=== PATIENT | female | born 1985 | race Caucasian/White ===

== ENCOUNTER → 2016-05-19 | Outpatient (CLI) | payer OTHER | END | disposition home or self-care (01) | LOC: C.LAB1850 07:07 | PROVIDERS: ATTEND Obstetrics & Gynecology | DX: O28.1 Abnormal biochemical finding on antenatal screening of mother (principal) ==

== ENCOUNTER → 2016-07-12 | Outpatient (CLI) | payer OTHER ==
[2016-07-12 09:51] LABS: HEMATOCRIT 36.2 % (37-47)
[2016-07-12 10:09] LABS: URINE APPEARANCE CLEAR (CLEAR); URINE BILIRUBIN NEG (NEG); URINE COLOR YELLOW; URINE EPITHELIAL CELL AUTO >30 /lpf (0-5); URINE NITRITE NEG (NEG); URINE SPECIFIC GRAVITY 1.013 (1.000-1.030); UROBILINOGEN NEG (NEG)
[2016-07-12 10:14] LABS: MANUAL MICROSCOPIC REQUIRED? NO; REVIEW REQ? NO
== END ==
LOC: C.LAB1850 07:03
PROVIDERS: ATTEND Obstetrics & Gynecology
DX: Z34.03 Encounter for supervision of normal first pregnancy, third trimester (principal)

== ENCOUNTER → 2016-09-17 | Outpatient (CLI) | payer OTHER | END | disposition home or self-care (01) | LOC: C.LABSPEC 13:28 | PROVIDERS: ATTEND Obstetrics & Gynecology | DX: O24.410 Gestational diabetes mellitus in pregnancy, diet controlled (principal); Z3A.00 Weeks of gestation of pregnancy not specified ==

== ENCOUNTER 2016-10-08 09:05 | Inpatient (IN) | payer OTHER ==
[~2016-10-08] VITALS: Ht 162.6 cm; Wt 68.5 kg
[2016-10-08 10:23] VITALS: Ht 162.6 cm; Wt 68.5 kg
[2016-10-08 11:22] LABS: BASO % 0.4 %; BASO ABS # 0.03 K/uL (0-0.2); COMPLETE YES; EOS % 0.9 %; HEMATOCRIT 33.4 % (37-47); IG% 0.4 %; LYMPH % 24.4 %; LYMPH ABS # 1.83 K/uL (1.2-3.4); MEAN CELL VOLUME 81.7 fL (80-100); MEAN CORPUSCULAR HEMOGLOBIN 27.4 pg (25-34); MEAN CORPUSCULAR HGB CONC 33.5 g/dl (32-36); MONO % 11.9 %; PLATELET COUNT 213 K/uL (130-400); RED BLOOD COUNT 4.09 M/uL (4.2-5.4); WHITE BLOOD COUNT 7.49 K/uL (4.8-10.8)
[2016-10-08 11:34] LABS: BUN/CREATININE RATIO 18.3 (10-20); CALCIUM 8.4 mg/dl (8.5-10.1); CREATININE 0.71 mg/dl (0.60-1.20); POTASSIUM 3.4 mmol/L (3.5-5.1)
[2016-10-08 11:36] LABS: ALB/GLOB RATIO 0.6 (0.9-2)
[2016-10-08] MEDS ORDERED: LACTATED RINGER'S 1000ML 1,000 ML IV PRN (12:11)
[2016-10-08] MEDS ORDERED: LACTATED RINGER'S 1000ML 500 ML IV PRN ×2 (12:12→21:20)
[2016-10-08] MEDS ORDERED: OXYTOCIN 30 UNITS/500ML NSS IV PRN (12:15)
[2016-10-08] MEDS: LACTATED RINGER'S 1000ML 1,000 ML IV SCH ×2 (12:55→19:50)
[2016-10-08] MEDS ORDERED: BUPIVACAINE 0.25% 30 ML VIAL ONE (19:54)
[2016-10-08] MEDS ORDERED: EpHEDrine SULFATE INJ 50 MG/ML AMP ONE (19:54)
[2016-10-08] MEDS ORDERED: FENTANYL CITRATE INJ 50 MCG/1 ML 2 ML VIAL ONE (19:55)
[2016-10-08] MEDS ORDERED: FENTANYL 2MCG/ML ROPIV 1.25MG/ML 100ML BAG EPI ONE (19:55)
[2016-10-08] MEDS ORDERED: NALOXONE HCL INJ 1 MG in SODIUM CHLORIDE 0.9% 1000ML 1,000 ML IV PRN (21:20)
[2016-10-08] MEDS ORDERED: NALOXONE HCL INJ 0.4 MG/1 ML VIAL/CARP IV PRN (21:30)
[2016-10-08] MEDS ORDERED: DiphenhydrAMINE HCL 50 MG/ML VIAL IV PRN (21:30)
[2016-10-08] MEDS ORDERED: ONDANSETRON INJ 2 MG/ML 2 ML VIAL IV PRN (21:30)
[2016-10-08] MEDS ORDERED: NALBUPHINE HCL INJ 10 MG/ML AMP IV PRN (21:30)
[2016-10-08] MEDS ORDERED: EpHEDrine SULFATE INJ 50 MG/ML AMP IV PRN (21:30)
[2016-10-08] MEDS: FENTANYL 2MCG/ML ROPIV 1.25MG/ML 100ML BAG EPI PRN (22:54)
[2016-10-09] MEDS: FENTANYL 2MCG/ML ROPIV 1.25MG/ML 100ML BAG EPI PRN (04:01)
[2016-10-09] MEDS ORDERED: BENZOCAINE 20% AER SPR 82.5 GM CAN EXT PRN (06:00)
[2016-10-09] MEDS ORDERED: SUPERCREAM 0.870 % 15GM JAR EXT PRN (06:00)
[2016-10-09] MEDS ORDERED: OXYTOCIN 30 UNITS/500ML NSS IV PRN (06:00)
[2016-10-09] MEDS ORDERED: DIPHTHERIA/TETANUS/PERTUSSIS 0.5 ML SYR/VIAL IM. ONE (06:00)
[2016-10-09] MEDS ORDERED: ACETAMINOPHEN/CODEINE 300/30MG TAB PO PRN ×2 (06:00)
[2016-10-09] MEDS ORDERED: LANOLIN OINT EXT PRN ×2 (06:00)
[2016-10-09] MEDS ORDERED: HYDROCORTISONE ACETATE 25 MG SUPP PR PRN (06:00)
[2016-10-09] MEDS ORDERED: OXYCODONE/ACETAMINOPHEN 5-325 TAB PO PRN (06:00)
[2016-10-09] MEDS: ACETAMINOPHEN 325 MG TAB PO PRN ×3 (06:33→21:14)
[2016-10-09] MEDS: IBUPROFEN 600 MG TAB PO PRN ×4 (08:07→21:13)
[2016-10-09] MEDS: DOCUSATE SODIUM 100 MG CAP PO SCH ×2 (08:09→19:33)
[2016-10-09] MEDS: PRENATAL VITAMIN TAB PO SCH (08:09)
--- NOTE | 2016-10-09 08:16 | Anesthesia Procedure Note ---
Anesthesia Epidural Removal Nt Date & Time Oct 09, 2016 at 08:15 Vital Signs Pain Intensity: 0.0 Notes Mental Status: alert / awake / arousable, participated in evaluation Nausea / Vomiting: adequately controlled Pain: adequately controlled Airway Patency, RR, SpO2: stable & adequate BP & HR: stable & adequate Hydration State: stable & adequate Neuraxial Anesthesia: was administered Anesthetic Complications: no major complications apparent, pt satisfied with anesthetic care Epidural: removed without complications, with tip intact
--- NOTE | 2016-10-09 08:44 | DELIVERY SUMMARY ---
DATE OF OPERATION: 10/09/2016 DATE OF DELIVERY: 10/09/2016. PREOPERATIVE DIAGNOSES: 1. Intrauterine at 39-1/7 weeks. 2. Gestational hypertension. POSTOPERATIVE DIAGNOSIS: Same. PROCEDURES: 1. Pitocin augmentation. 2. Epidural anesthesia. 3. Amniotomy for clear fluid. 4. Intrauterine pressure catheter placed. 5. Normal spontaneous vaginal delivery. 6. Second degree perineal laceration with repair. SURGEON: Dr. Jalloh. ANESTHESIA: Epidural. ESTIMATED BLOOD LOSS: 350 mL. PROCEDURE: Dolores presented to labor and delivery with elevated blood pressures fulfilling the diagnostic criteria for gestational hypertension. After discussion and given that she was 39 weeks decision made for induction. Attempt to place a Pepper bulb failed as originally I thought she was like fingertip to 1 but she was actually 3+ and 50% so she underwent Pitocin augmentation. She made essentially no progress for quite some time so an intrauterine pressure catheter was placed after amniotomy for clear fluid. She then progressed spontaneously from 5 to complete over approximately 2 hours and pushed for approximately half an hour to deliver a viable female in WILFRID presentation. Nose and mouth were bulb suctioned. There was no nuchal cord. The rest of the was then delivered without difficulty. The nose and mouth were again bulb suctioned and the was placed on the maternal abdomen for drying and attention. The cord was clamped and cut at 1 minute of life. Cord blood and segment were obtained. The placenta was delivered spontaneously intact with a 3-vessel cord. Cervix, sulci and rectum were examined and found to be intact. Second degree perineal laceration was repaired in the normal standard fashion. Hemostasis was obtained with dilute Pitocin and fundal massage. Apgars were 8 and 9. Of note, maternal temp prior to pushing was 99.9 and there was tachycardia in the 170s during pushing. I attest to the content of the Intraoperative Record and any orders documented therein. Any exception s are noted below.
[2016-10-09 09:30] VITALS: BP 109/73; PULSE 102; TEMP 36.4; O2SAT 96
[2016-10-09 14:00] VITALS: BP 113/74; PULSE 83; TEMP 36.3; O2SAT 98
[2016-10-09 15:30] VITALS: BP 95/59; PULSE 75; TEMP 36.7
[2016-10-09 19:30] VITALS: BP 107/69; PULSE 86; TEMP 36.6; O2SAT 97
[2016-10-09 23:45] VITALS: BP 105/76; PULSE 70; TEMP 36.6; O2SAT 97
[2016-10-10] MEDS: IBUPROFEN 600 MG TAB PO PRN ×3 (02:31→11:34)
[2016-10-10 03:50] VITALS: BP 106/71; PULSE 80; TEMP 36.5; O2SAT 98
[2016-10-10] MEDS: ACETAMINOPHEN 325 MG TAB PO PRN (03:55)
[2016-10-10 06:21] LABS: HEMATOCRIT 31.3 % (37-47)
--- NOTE | 2016-10-10 07:08 | Progress Note ---
Subjective Oct 10, 2016. Subjective conversation w/ patient, physical exam Ambulation: ambulating normally, limited ambulation Passing Gas: Yes Diet Tolerance: Regular Diet Lochia: Small Feeding Type: Breast Feeding Review of Systems Constitutional: No fever, No chills, No sweats, No weight loss, No weakness, No fatigue, No problem reported Breast: No see HPI, No breast lump, No change in shape, No nipple discharge, No breast pain, No problem reported Abdomen: No pain, No nausea, No vomiting, No diarrhea, No constipation, No GI bleeding, No problem reported Female : No see HPI, No dysuria, No urinary frequency, No hematuria, No incontinence, No abnormal vaginal bleeding, No vaginal discharge, No problem reported Objective Vital Signs Date Time Temp Pulse Resp B/P (MAP) Pulse Ox O2 Delivery O2 Flow Rate FiO2 10/10/16 03:50 36.5 80 16 106/71 (83) 98 Room Air 10/09/16 23:45 97 Room Air 10/09/16 23:45 36.6 70 18 105/76 (86) 97 Room Air 10/09/16 19:30 36.6 86 18 107/69 (82) 97 Room Air 10/09/16 16:00 Room Air 10/09/16 15:30 36.7 75 18 95/59 (71) Room Air 10/09/16 14:00 36.3 83 18 113/74 (87) 98 Room Air 10/09/16 09:30 36.4 102 18 109/73 (85) 96 Room Air Physical Exam General Appearance: WELL-APPEARING, NO APPARENT DISTRESS Abdomen: non tender, soft Fundus: Firm, Non-Tender, Relation to Umbilicus (1 below U) Extremities: no calf tenderness Laboratory Results Last 24 Hours Test 10/10/16 05:54 Hemoglobin 10.2 g/dL Hematocrit 31.3 % Assessment and Plan Day#: 1 Continue Routine Care: stable course BP has normalized discharge to home follow up in 6 weeks.
[2016-10-10] MEDS: PRENATAL VITAMIN TAB PO SCH (07:36)
[2016-10-10] MEDS: DOCUSATE SODIUM 100 MG CAP PO SCH (07:36)
--- NOTE | 2016-10-10 08:03 | Discharge Instructions ---
Discharge Instructions Date of Service Oct 10, 2016. Admission Reason for Admission: [facility] Discharge Discharge Diagnosis / Problem: recovery from delivery Discharge Goals Goal(s): Routine recovery after delivery Medications Continue Dispensed Medications: supercream, dermaplast, tucks, lansinoh Activity Recommendations Activity Limitations: per Instructions/Follow-up section . Instructions / Follow-Up Instructions / Follow-Up ACTIVITY RECOMMENDATIONS: * Gradual return to full activity over the next 2-3 weeks. * No lifting - nothing heavier than baby over the next 2-3 weeks. * Do not engage in vigorous exercise, sexual activity or sports until cleared by your physician. * Do not drive or operate any motorized equipment until cleared by your physician. * You may shower/bathe daily. MEDICATIONS: For discomfort or pain, you may use Acetaminophen (Tylenol), Ibuprofen (Advil), or Naproxen (Aleve) following the package directions. For constipation you may use Colace following the package directions. BREAST CARE: If you are not breast feeding: * Wear a supportive bra 24 hours a day for one to two weeks. * Avoid stimulating your breasts and nipples as much as possible during the first few weeks after delivery. * When taking a shower, have the warm water hit your back, not breasts. * When your breasts feel full, apply ice packs. Usually three to four times a day helps ease the discomfort. * Take a mild pain medication (Tylenol / Motrin) when you are uncomfortable. If breast feeding: * Use breast milk to lubricate nipples. Lansinoh cream may be used for sore nipples. You do not need to remove cream prior to breast feeding. If using a different brand of cream, check the label for directions regarding removal of cream prior to nursing. * Wear a supportive bra. * If having problems with breasts or breast feeding, call a data integrity consultant or your health care provider. EPISIOTOMY CARE: After delivery, if you have an episiotomy (stitches), the following steps will ease discomfort and aid healing. * For the first 24 hours after delivery, place ice packs next to your episiotomy to help reduce swelling. * After the first 24 hour-period, sitz baths, either portable or in the tub, are suggested. A shower with a shower arm sprayed over the episiotomy may be comforting. * Mayra care should be done after each voiding and bowel movement. Squirt warm water from a plastic bottle over the perineum (region of the body between the anus and urinary opening) and pat dry. * Use Dermoplast to ease discomfort. Shake container. [place] directly over the episiotomy. Place a Tucks on a clean sanitary pad next to your episiotomy. SPECIAL CARE INSTRUCTIONS: When you are discharged from the hospital, it is important for you to follow the instructions listed below: * During the first week at home, you should be able to care for yourself and your baby. In addition, the usual light household activities are encouraged. * Limit your activities to the way you feel. Do not try to clean the house or move furniture. Be sensible. * If you actively engage in sports and have done so up until the time of your delivery, you may resume these activities as soon as you feel able. This may take up to one month or even longer. Use good judgment. * Continue to take your vitamins for at least six weeks after the of your baby. * Your diet need not be limited unless you were on a special diet before your delivery. Breast-feeding mothers need around 2500 calories per day and at least 64-80 ounces of fluid per day (8 to 10 glasses). * You should eat foods from the four major food groups. Crash diets or fad diets are to be avoided. Eating lean meats, fresh fruits and vegetables, low-fat dairy products, high fiber foods and a regular exercise program, will help you get back to your pre- weight without putting your health at risk. * Constipation is sometimes a problem after delivery. Take a mild laxative as needed. If breast feeding, Milk of Magnesia is acceptable to use. You may use a suppository or Fleets enema if no episiotomy. * A daily shower or tub bath is suggested. Be sure to thoroughly and gently dry the perineum. * A bloody vaginal discharge will usually continue until around four weeks post . A small amount of bleeding may continue for as long as six weeks. Vaginal discharge changes from the bright red bleeding after delivery to pink then brownish and finally yellowish-pink before becoming white and disappearing. * Bleeding may increase with activity. Your first period may come in 4-8 weeks. If you are breast feeding, your period may be delayed even longer. * [place] (sex) can begin whenever both you and your partner feel comfortable and do not have any form of genital infection. It is recommended that you wait at least six weeks for internal and external healing to occur. If you have questions, please talk to your health care practitioner. A condom should be used to prevent infection and . * Foreplay, gentle intercourse and lubrication is very important the first several times to prevent pain. A water-based lubricant such as K-Y jelly or Astroglide may be used. * If you have RH negative blood and your baby is RH positive, you will receive RHOGAM by injection prior to discharge. The nurse will give you a card to keep with you that has the date and place that you received RHOGAM after delivery. * During your care, you had a Rubella screen done to check for the presence of rubella antibodies in your blood. If your test was negative, you will receive a Rubella vaccine prior to discharge. This vaccine may cause a fever, soreness at the injection site and flu-like symptoms. If these symptoms persist, notify your health care practitioner. is not advised for one month after a Rubella vaccine. * Verbalizes understanding of car seat law as reviewed with patient nursing. * Car Seat hand-out given and reviewed with patient by nursing. * Shaken baby information reviewed with patient by nursing. Call you doctor if: * Heavy bleeding (saturating several pads an hour) or passing clots the size of your fist. * A fever >101 degrees F (38.3 degrees C) on two occasions four hours apart and /or chills. * Unusual pain in the pelvic or vaginal areas. * "Baby Blues" lasting longer than two weeks. If you have any questions or concerns, call your health care practitioner at . FOLLOW UP VISIT: * Please call the office at to schedule a 6 week examination. It is important you keep this appointment. It is important for you to make arrangements for either yearly or twice yearly check-ups thereafter. Current Hospital Diet Patient's current hospital diet: Regular OB Diet Discharge Diet Recommended Diet: Regular OB Diet Pending Studies Studies pending at discharge: no Medical Emergencies . Who to Call and When: Medical Emergencies: If at any time you feel your situation is an emergency, please call 911 immediately. . Non-Emergent Contact Non-Emergency issues call your: Camp Assistant . . "Provider Documentation" section prepared by Nori Jimenez. . VTE Core Measure Inpt VTE Proph given/why not?: Treatment not indicated
[2016-10-10 08:05] VITALS: BP 115/78; PULSE 76; TEMP 36.9; O2SAT 97; O2SAT 98
[2016-10-10 13:57] VITALS: BP_DIAS 78; PULSE 76; TEMP 36.9
== END 2016-10-10 13:50 | disposition home or self-care (01) | DRG 775 ==
LOC: C.LD 09:05 → C.OPB 09:05 → C.LD 12:12 → C.OBG 10-09 10:09
PROVIDERS: ADMIT Obstetrics & Gynecology; ATTEND Obstetrics & Gynecology
PROC: 0KQM0ZZ Repair Perineum Muscle, Open Approach (ICD-10-PCS; principal; 2016-10-09)
PROC: 10E0XZZ Delivery of Products of Conception, External Approach (ICD-10-PCS; principal; 2016-10-09)
PROC: 10903ZC Drainage of Amniotic Fluid, Therapeutic from Products of Conception, Percutaneous Approach (ICD-10-PCS; principal; 2016-10-09)
PROC: 3E033VJ Introduction of Other Hormone into Peripheral Vein, Percutaneous Approach (ICD-10-PCS; principal; 2016-10-09)
DX: O13.4 Gestational [pregnancy-induced] hypertension without significant proteinuria, complicating childbirth (principal); O70.1 Second degree perineal laceration during delivery; O76 Abnormality in fetal heart rate and rhythm complicating labor and delivery; O24.429 Gestational diabetes mellitus in childbirth, unspecified control; Z37.0 Single live birth; Z3A.39 39 weeks gestation of pregnancy

== ENCOUNTER → 2017-04-21 | Outpatient (CLI) | payer OTHER | END | disposition home or self-care (01) | LOC: C.LAB1850 07:46 | PROVIDERS: ATTEND Obstetrics & Gynecology | DX: O24.410 Gestational diabetes mellitus in pregnancy, diet controlled (principal) ==

== ENCOUNTER → 2017-12-16 | Outpatient (CLI) | payer OTHER | END | disposition home or self-care (01) | LOC: C.LAB1850 07:28 | PROVIDERS: ATTEND Physician Assistant Medical | DX: Z00.00 Encounter for general adult medical examination without abnormal findings (principal) ==

== ENCOUNTER 2021-01-24 23:41 | Inpatient (IN) ==
[2021-01-25] MEDS ORDERED: OXYTOCIN 30 UNITS/500 ML BAG IV PRN ×2 (00:29→00:49)
--- NOTE | 2021-01-25 00:42 | History & Physical Report ---
Date of Service January 25, 2021 Assessment & Plan (1) Gestational diabetes mellitus (GDM) affecting , antepartum: (2) with 39 completed weeks gestation: (3) PROM (premature rupture of membranes): Plan: fetua category one. gbs neg. discussed expectant management or initiation of pitocin and +/- of both. She is ok with augmenting at this point. epidural on demand. anticipate . Admission and Anticipated Discharge Date Admission Date: January 25, 2021 History of Present Illness Chief Complaint: rom Primary Care Provider: Cesar Neal MD Patient is a 35yowf with iup at 39 0/7 weeks who called noted gross rom at 10pm, clear, no bleeding. Notes an occasional contraction. +fm. complicated by ama and A1GDDM. labs--O+/ab-/ri/rprnr/hepb-/hiv-/gc/ct-/ gbs neg/low risk cfdna Allergies Allergy/AdvReac Type Severity Reaction Status Date / Time banana Allergy Mild GI SYMPTOMS Verified 01/20/21 15:02 amoxicillin Allergy Unknown Swelling Verified 01/20/21 15:02 of Lip/Tongue/Throat latex Allergy Unknown Rash Verified 01/20/21 15:02 Beef Containing Products AdvReac Intermediate GI SYMPTOMS Verified 01/20/21 15:02 OATS AND RYE AdvReac Intermediate GI SYMPTOMS Uncoded 12/23/20 18:10 SWEET POTATOES AdvReac Intermediate GI SYMPTOMS Uncoded 12/23/20 18:10 Home Medications Medication Instructions Recorded Confirmed Type prenat.vits,edmund,[id number]-[id number] 1 tab PO DAILY 07/02/19 01/25/21 History acetone (urine) test (Ketone Urine #50 ea 08/12/20 01/20/21 Rx Test) blood sugar diagnostic (OneTouch #150 ea 08/12/20 01/20/21 Rx Verio test strips) iron polysacch cplx 150 mg 1 cap PO DAILY #30 cap 10/21/20 01/25/21 Rx iron-vit B12 25 mcg-folic acid 1 mg capsule Patient History Medical History Chronic tonsillitis Elevated blood pressure affecting in third trimester, antepartum GERD (gastroesophageal reflux disease) Gestational hypertension w/o significant proteinuria in 3rd trimester History of bronchitis History of seizures just one > age 5 > no reason found Intrauterine before 20 weeks of gestation Tonsil stone Surgical History History of oral surgery WISDOM TEETH REMOVED History of tonsillectomy 05/11/19-Dr. Brown Family History Aunt Congenital kidney disease Mother Depression Sinusitis Diabetes Father Depression Hearing loss Allergies Hypertension Heart disease Grandmother (Maternal) Heart disease Myocardial infarction Grandfather (Paternal) Lung cancer Uncle Stroke Grandfather Heart disease Cancer Other No family history of adverse response to anesthesia No family history of bleeding disorder Denies family history of Ovarian cancer Breast cancer Colorectal cancer Social History Smoking Status: Never smoker Second Hand Exposure: No; Hx Alcohol Use: No Hx Substance Use: No Preferred Language: Lao Communication Ability: Effective Turning Lathe Tender Required: No Beliefs That Will Affect Care: None marital status: marital status details: Al (34) [phone] Current Living Situation: Spouse Current Living Situation Comment: house with brother until house is being built current occupational status: employed 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 Other Information That Helps Us Care for You: No Feels Safe at Home: Yes Safety Concerns: Feels Safe At This Time Childhood Exposure to Second-Hand Smoke: No Physical Activity Frequency: Does not Exercise Assistive Devices: None Physical Exam Constitutional: WD/WN, vitals as above Gastrointestinal (Abdomen): soft, gravid, nt Psychiatric: A+Ox3, euthymic affect Genitourinary: sse--grossly ruptures sve--3/75/-2/mid/soft efm---140s with mod variability, small accels, no decels toco--q4-6min, not really feeling. Results & Data ([facility]) Vital Signs (Past 12 Hours) Vital Signs Temp Pulse Resp BP 01/25/21 00:03 36.5 C 18 01/24/21 23:56 36.5 C 90 18 110/71 Code Status & VTE Plan VTE Prophylaxis Plan VTE Prophylaxis will be ordered: No Coding Level of Care Code None Diagnoses Gestational diabetes mellitus (GDM) affecting , antepartum O24.419 with 39 completed weeks gestation Z3A.39 PROM (premature rupture of membranes) O42.90
[2021-01-25] MEDS: LACTATED RINGER'S 1,000 ML IV PRN ×2 (00:53→04:23)
[2021-01-25 01:00] LABS: Hematocrit (blood only) 35.2 % (37-47); Hemoglobin 11.8 g/dL (12.0-16.0); Mean Corpuscular Hemoglobin 27.8 pg (25-34); Mean Corpuscular Hgb Conc 33.5 g/dL (32-36); Mean Platelet Volume 9.1 fL (7.4-10.4); Platelet Count 214 K/uL (130-400); RDW Coefficient of Variation 15.2 % (11.5-14.5); RDW Standard Deviation 45.4 fL (36.4-46.3); Red Blood Count 4.24 M/uL (4.2-5.4); White Blood Count 9.98 K/uL (4.8-10.8)
[2021-01-25] MEDS ORDERED: fentaNYL 2MCG/ML ROPIVACAINE 1.25MG/ML 100 ML BAG EPI ONE (03:40)
[2021-01-25] MEDS ORDERED: SODIUM CHLORIDE 0.9% INJ 10 ML VIAL ONE (03:40)
[2021-01-25] MEDS ORDERED: fentaNYL citrate 100 MCG/2 ML VIAL ONE (03:40)
[2021-01-25] MEDS ORDERED: ePHEDrine sulfate 50 MG/ML AMP ONE (03:40)
[2021-01-25] MEDS ORDERED: BUPIVACAINE 0.25% 30 ML VIAL ONE (03:40)
--- NOTE | 2021-01-25 04:49 | Anesthesiology Consultation ---
Date of Service January 25, 2021 Assessment & Plan Chart Review Chart Review: Acceptable Risk for Labor Epidural Consults Requested none History Height/Weight Height: 5 ft 4 in Weight: 58.513 kg Allergies Allergy/AdvReac Type Severity Reaction Status Date / Time banana Allergy Mild GI SYMPTOMS Verified 01/20/21 15:02 amoxicillin Allergy Unknown Swelling Verified 01/20/21 15:02 of Lip/Tongue/Throat latex Allergy Unknown Rash Verified 01/20/21 15:02 Beef Containing Products AdvReac Intermediate GI SYMPTOMS Verified 01/20/21 15:02 OATS AND RYE AdvReac Intermediate GI SYMPTOMS Uncoded 12/23/20 18:10 SWEET POTATOES AdvReac Intermediate GI SYMPTOMS Uncoded 12/23/20 18:10 Medications Home Medications Medication Instructions Recorded Confirmed Last Taken prenat.vits,edmund,xcj-ffpu-cauhc 1 tab PO DAILY 07/02/19 01/25/21 01/24/21 acetone (urine) test (Ketone Urine #50 ea 08/12/20 01/20/21 Unknown Test) blood sugar diagnostic (OneTouch #150 ea 08/12/20 01/20/21 Unknown Verio test strips) iron polysacch cplx 150 mg 1 cap PO DAILY #30 cap 10/21/20 01/25/21 01/24/21 iron-vit B12 25 mcg-folic acid 1 mg capsule Active Medications Generic Name Dose Route Start Last Admin Trade Name Freq PRN Reason Stop Dose Admin Lactated Ringer's 1,000 mls @ 125 mls/hr 01/25/21 00:29 01/25/21 04:23 Lr IV 01/27/21 00:28 125 mls/hr .Q8H PRN Administration L&D Protocol Protocol Oxytocin 30 units in 500 mls @ 3 mls/hr 01/25/21 00:49 01/25/21 04:47 Pitocin IV 01/27/21 00:48 0.24 units/hr .Q24H PRN 4 mls/hr Labor Induction/Augmentation Titration Protocol 0.18 UNITS/HR Past Medical History Medical History Chronic tonsillitis Elevated blood pressure affecting in third trimester, antepartum GERD (gastroesophageal reflux disease) Gestational hypertension w/o significant proteinuria in 3rd trimester History of bronchitis History of seizures just one > age 5 > no reason found Intrauterine before 20 weeks of gestation Tonsil stone Past Family History Family History Aunt Congenital kidney disease Mother Depression Sinusitis Diabetes Father Depression Hearing loss Allergies Hypertension Heart disease Grandmother (Maternal) Heart disease Myocardial infarction Grandfather (Paternal) Lung cancer Uncle Stroke Grandfather Heart disease Cancer Other No family history of adverse response to anesthesia No family history of bleeding disorder Denies family history of Ovarian cancer Breast cancer Colorectal cancer Past Surgical History Surgical History History of oral surgery WISDOM TEETH REMOVED History of tonsillectomy 05/11/19-Dr. Brown Social History Smoking Status: Never smoker Hx Alcohol Use: No alcohol intake frequency: holidays/special occasions only Hx Substance Use: No substance use type: does not use Physical Exam Vital Signs Last Vital Signs Temp 36.6 C 01/25/21 03:35 Pulse 82 01/25/21 04:48 Resp 18 01/25/21 03:00 BP 106/65 01/25/21 04:48 Pulse Ox 99 01/25/21 04:43 Testing Laboratory Results 01/25/21 00:43 01/25/21 01/25/21 01/25/21 03:33 01:41 00:40 POC Glucose 77 89 77
[2021-01-25] MEDS ORDERED: fentaNYL 2MCG/ML ROPIVACAINE 1.25MG/ML 100 ML BAG EPI PRN (04:52)
[2021-01-25] MEDS ORDERED: NALOXONE HCL 0.4 MG/1 ML VIAL/CARP IV PRN (04:52)
[2021-01-25] MEDS ORDERED: NALBUPHINE HCL INJ 10 MG/ML AMP IV PRN (04:52)
[2021-01-25] MEDS ORDERED: ePHEDrine sulfate 50 MG/ML AMP IV PRN (04:52)
[2021-01-25] MEDS ORDERED: diphenhydrAMINE 50 MG/ML VIAL IV PRN (04:52)
[2021-01-25] MEDS ORDERED: NALOXONE HCL 1 MG in SODIUM CHLORIDE 0.9% 1000ML 1,000 ML IV PRN (04:52)
--- NOTE | 2021-01-25 07:32 | Labor Progress Brief Note ---
Date of Service January 25, 2021 Subjective comfortable Assessment & Plan (1) PROM (premature rupture of membranes): (2) with 39 completed weeks gestation: Plan: continue current management, increase pitocin, fetus category one . anticipate . Admission and Anticipated Discharge Date Admission Date: January 25, 2021 Physical Exam Physical Exam: cx--5/80/-2 toco--q3min, pit at 7 efm--140s wtih mod variability, small accels, no decels Results & Data ([place]) Vital Signs (Past 12 Hours) Vital Signs Temp Pulse Resp BP Pulse Ox 01/25/21 07:28 96 H 98 01/25/21 07:23 106 H 98 01/25/21 07:22 106 H 96/68 L 01/25/21 07:18 98 H 100 01/25/21 07:13 105 H 100 01/25/21 07:08 37.1 C 105 H 18 105/71 99 01/25/21 07:03 110 H 99 01/25/21 07:00 18 01/25/21 06:58 87 98 01/25/21 06:53 95 H 99 01/25/21 06:52 92 H 94/62 L 01/25/21 06:48 89 100 01/25/21 06:43 85 99 01/25/21 06:38 86 100 01/25/21 06:37 88 104/62 01/25/21 06:33 86 100 01/25/21 06:30 18 01/25/21 06:28 84 100 01/25/21 06:23 84 100 01/25/21 06:22 80 98/64 L 01/25/21 06:18 92 H 99 01/25/21 06:13 75 98 01/25/21 06:08 77 100 01/25/21 06:07 92 H 95/61 L 01/25/21 06:05 36.6 C 18 01/25/21 06:03 86 100 01/25/21 05:58 82 99 01/25/21 05:53 84 93/57 L 100 01/25/21 05:48 77 99 01/25/21 05:43 83 99 01/25/21 05:38 80 99 01/25/21 05:37 81 101/63 01/25/21 05:33 84 98 01/25/21 05:30 18 01/25/21 05:28 77 100 01/25/21 05:23 76 100 01/25/21 05:22 85 92/60 L 01/25/21 05:18 96 H 100 01/25/21 05:13 85 100 01/25/21 05:08 80 100 01/25/21 05:07 78 106/65 01/25/21 05:03 80 99 01/25/21 05:00 18 01/25/21 04:58 84 99 01/25/21 04:53 86 99 01/25/21 04:52 83 112/63 01/25/21 04:50 83 105/62 01/25/21 04:48 80 106/65 100 01/25/21 04:46 85 107/64 01/25/21 04:45 89 115/65 01/25/21 04:43 87 99 01/25/21 04:42 96 H 116/71 01/25/21 04:40 80 89/54 L 01/25/21 04:38 84 96/51 L 100 01/25/21 04:35 85 96/55 L 01/25/21 04:33 93 H 100 01/25/21 04:32 94 H 112/74 01/25/21 04:30 76 113/68 01/25/21 04:28 78 100 01/25/21 04:27 83 114/72 01/25/21 04:23 88 100 01/25/21 04:18 84 100 01/25/21 04:15 83 115/71 01/25/21 04:13 85 100 01/25/21 04:08 83 100 01/25/21 04:03 79 100 01/25/21 03:58 86 100 01/25/21 03:53 83 100 01/25/21 03:35 36.6 C 78 109/73 01/25/21 03:30 18 01/25/21 03:00 18 01/25/21 02:44 76 105/72 01/25/21 01:42 36.5 C 73 18 109/63 01/25/21 01:30 18 01/25/21 00:03 36.5 C 18 01/24/21 23:56 36.5 C 90 18 110/71 Coding Level of Care Code None Diagnoses PROM (premature rupture of membranes) O42.90 with 39 completed weeks gestation Z3A.39
--- NOTE | 2021-01-25 09:26 | Labor Progress Brief Note ---
Date of Service January 25, 2021 Subjective comfortable Assessment & Plan (1) PROM (premature rupture of membranes): (2) with 39 completed weeks gestation: Plan: fetus category two but reassuring. continue current management. anticipate . Admission and Anticipated Discharge Date Admission Date: January 25, 2021 Physical Exam Physical Exam: cx--/0 toco--q2-3min efm--140s with mod variability, accels present. variables with contractions Results & Data ([facility]) Vital Signs (Past 12 Hours) Vital Signs Temp Pulse Resp BP Pulse Ox 01/25/21 09:18 99 H 99 01/25/21 09:13 100 H 96 01/25/21 09:08 87 85/50 L 91 01/25/21 09:07 94 H 92 01/25/21 09:03 87 98 01/25/21 08:58 98 H 95 01/25/21 08:53 87 81/51 L 98 01/25/21 08:52 91 H 93 01/25/21 08:48 79 96 01/25/21 08:43 84 94 01/25/21 08:38 97 H 94/51 L 99 01/25/21 08:33 76 100 01/25/21 08:28 94 H 99 01/25/21 08:25 84 92 01/25/21 08:23 86 100 01/25/21 08:22 95 H 96/55 L 01/25/21 08:18 87 100 01/25/21 08:13 90 99 01/25/21 08:08 98 H 99 01/25/21 08:07 92 H 96/51 L 01/25/21 08:03 113 H 100 01/25/21 07:58 103 H 100 01/25/21 07:53 88 99 01/25/21 07:52 90 91/51 L 01/25/21 07:48 80 99 01/25/21 07:43 84 99 01/25/21 07:38 93 H 90/52 L 99 01/25/21 07:33 106 H 100 01/25/21 07:28 96 H 98 01/25/21 07:23 106 H 98 01/25/21 07:22 106 H 96/68 L 01/25/21 07:18 98 H 100 01/25/21 07:13 105 H 100 01/25/21 07:08 37.1 C 105 H 18 105/71 99 01/25/21 07:03 110 H 99 01/25/21 07:00 18 01/25/21 06:58 87 98 01/25/21 06:53 95 H 99 01/25/21 06:52 92 H 94/62 L 01/25/21 06:48 89 100 01/25/21 06:43 85 99 01/25/21 06:38 86 100 01/25/21 06:37 88 104/62 01/25/21 06:33 86 100 01/25/21 06:30 18 01/25/21 06:28 84 100 01/25/21 06:23 84 100 01/25/21 06:22 80 98/64 L 01/25/21 06:18 92 H 99 01/25/21 06:13 75 98 01/25/21 06:08 77 100 01/25/21 06:07 92 H 95/61 L 01/25/21 06:05 36.6 C 18 01/25/21 06:03 86 100 01/25/21 05:58 82 99 01/25/21 05:53 84 93/57 L 100 01/25/21 05:48 77 99 01/25/21 05:43 83 99 01/25/21 05:38 80 99 01/25/21 05:37 81 101/63 01/25/21 05:33 84 98 01/25/21 05:30 18 01/25/21 05:28 77 100 01/25/21 05:23 76 100 01/25/21 05:22 85 92/60 L 01/25/21 05:18 96 H 100 01/25/21 05:13 85 100 01/25/21 05:08 80 100 01/25/21 05:07 78 106/65 01/25/21 05:03 80 99 01/25/21 05:00 18 01/25/21 04:58 84 99 01/25/21 04:53 86 99 01/25/21 04:52 83 112/63 01/25/21 04:50 83 105/62 01/25/21 04:48 80 106/65 100 01/25/21 04:46 85 107/64 01/25/21 04:45 89 115/65 01/25/21 04:43 87 99 09/26/21 04:42 96 H 116/71 01/25/21 04:40 80 89/54 L 01/25/21 04:38 84 96/51 L 100 01/25/21 04:35 85 96/55 L 01/25/21 04:33 93 H 100 01/25/21 04:32 94 H 112/74 01/25/21 04:30 76 113/68 01/25/21 04:28 78 100 01/25/21 04:27 83 114/72 01/25/21 04:23 88 100 01/25/21 04:18 84 100 01/25/21 04:15 83 115/71 01/25/21 04:13 85 100 01/25/21 04:08 83 100 01/25/21 04:03 79 100 01/25/21 03:58 86 01/25/21 03:53 83 01/25/21 03:35 36.6 C 78 109/73 01/25/21 03:30 18 01/25/21 03:00 18 01/25/21 02:44 76 105/72 01/25/21 01:42 36.5 C 73 18 109/63 01/25/21 01:30 18 01/25/21 00:03 36.5 C 18 01/24/21 23:56 36.5 C 90 18 110/71 Coding Level of Care Code None Diagnoses PROM (premature rupture of membranes) O42.90 with 39 completed weeks gestation Z3A.39
[2021-01-25] MEDS ORDERED: oxyCODONE/ACETAMINOPHEN 5mg/325mg TAB PO PRN (10:27)
--- NOTE | 2021-01-25 10:27 | Delivery Summary ---
Vaginal Delivery Summary Date of Service January 25, 2021 Vaginal Delivery Summary and 2nd Degree LAC Pre-operative Diagnosis: at 39 0/7 srom labor Post-operative Diagnosis: same Procedure: pitocin augmentation epidural repair of second degree laceration EBL: 300cc Anesthesia: epidural Procedure: The patient was admitted with srom and elected augmentation. She then received and epidural and progressed to c/c/+2. The patient pushed for 20 minutes to deliver a viable male in bird position. The rest of the infant was then delivered without difficulty through a loose nuchal cord. The baby was vigorous. The nose and mouth were bulb suctioned and the was placed in the maternal abdomen for drying and attention. Cord was clamped and cut at one minute of life. Cord blood and segment obtained. Placenta delivered sponta neous, intact with a three vessel cord. Cervix/sulci/rectum were intact. A second degree perineal laceration was repaired in the normal standard fashion. Hemostasis obtained with dilute pitocin and fundal massage. Apgars were pending. Mother and baby doing well at the end of the delivery. [facility] Vaginal Delivery Charge Delivery Type Details: and 2nd Degree LAC
[2021-01-25] MEDS ORDERED: BENZOCAINE 20% AER SPR 82.5 GM CAN EXT ONE (12:36)
[2021-01-25] MEDS: IBUPROFEN 600 MG TAB PO PRN ×3 (12:44→23:18)
--- NOTE | 2021-01-25 17:41 | Anesthesia Procedure Note ---
Date of Service January 25, 2021 Anesthesia Post Epidural Note Vital Signs Vital Signs: Temp Pulse Resp BP Pulse Ox 36.6 C 76 18 99/65 L 99 01/25/21 16:53 01/25/21 16:53 01/25/21 16:53 01/25/21 16:53 01/25/21 16:53 Pain Intensity Abdomen: Pain Intensity: 1 Notes Mental Status: alert / awake / arousable and participated in evaluation Nausea / Vomiting: adequately controlled Pain: adequately controlled Airway Patency, RR, SpO2: stable & adequate BP & HR: stable & adequate Hydration State: stable & adequate Neuraxial Anesthesia: was administered and sensory block is resolving Anesthetic Complications: no major complications apparent and Pt Satisfied with anesthetic care Epidural: Removed without complications and With tip intact
[2021-01-25] MEDS ORDERED: BENZOCAINE 20% AER SPR 82.5 GM CAN EXT PRN (19:17)
[2021-01-25] MEDS: ACETAMINOPHEN 325 MG TAB PO PRN (19:41)
[2021-01-25] MEDS: DOCUSATE SODIUM 100 MG CAP PO SCH (20:18)
[2021-01-26] MEDS: IBUPROFEN 600 MG TAB PO PRN ×2 (06:08→09:56)
[2021-01-26 06:47] LABS: Hematocrit (blood only) 33.8 % (37-47)
--- NOTE | 2021-01-26 07:11 | Obstetrical Progress Note ---
Date of Service January 26, 2021 Assessment & Plan (1) Vaginal delivery: Doing well. Plan d/c today. INstructions given. Subjective Ambulation: ambulating normally Voiding: no voiding problems Passing Gas:: Yes Diet Tolerance:: regular diet Lochia:: Small Feeding Type:: breast feeding Physical Exam Constitutional WD/WN, vitals as above Neck trachea midline, no thyromegaly Cardiovascular Extremities: no calf tenderness and no edema Gastrointestinal (Abdomen) soft, nt, nd, ff/nt at u Results & Data ([facility]) Vital Signs (Past 12 Hours) Vital Signs Temp Pulse Resp BP Pulse Ox 01/26/21 03:00 36.6 C 69 16 98/67 L 97 01/25/21 23:00 36.9 C 68 16 99/63 L 98 01/25/21 19:25 36.6 C 77 16 96/65 L 99
[2021-01-26] MEDS: ACETAMINOPHEN 325 MG TAB PO PRN ×2 (08:51→12:31)
[2021-01-26] MEDS: DOCUSATE SODIUM 100 MG CAP PO SCH (08:51)
[2021-01-26] MEDS ORDERED: PRENATAL VITAMIN 1 TAB PO SCH (09:00)
== END 2021-01-26 13:45 | disposition home or self-care (01) | DRG 807 ==
LOC: OPB 23:41 → 4S1 23:43 → 4S2 01-25 12:19